=== PATIENT | male | born 1960 | race Two or more races ===

== ENCOUNTER 2016-09-29 10:00 | Emergency (ER) | payer OTHER ==
[~2016-09-29] VITALS: Ht 167.6 cm; Wt 103.4 kg
[2016-09-29] MEDS ORDERED: HYDROmorphone HCL 2 MG/ML VL IM ONE (11:45)
[2016-09-29] MEDS ORDERED: ONDANSETRON HCL 4 MG/2 ML VIAL IM ONE (11:45)
[2016-09-29 12:55] VITALS: BP 146/63
[2016-09-29] MEDS ORDERED: SODIUM CHLORIDE 0.9% 1,000 ML IV ONE (13:15)
[2016-09-29] MEDS ORDERED: MORPHINE SULFATE 4 MG/ML SYRG IV ONE (13:15)
[2016-09-29] MEDS ORDERED: ONDANSETRON HCL 4 MG/2 ML VIAL IV ONE (13:15)
== END 2016-09-29 16:24 | disposition home or self-care (01) ==
LOC: ER 10:11
DX: S22.009A Unspecified fracture of unspecified thoracic vertebra, initial encounter for closed fracture (principal); W22.8XXA Striking against or struck by other objects, initial encounter; Y93.89 Activity, other specified; Y99.0 Civilian activity done for income or pay; Y92.69 Other specified industrial and construction area as the place of occurrence of the external cause
CPT/HCPCS: 70450; 72040; 72070; 72125; 72128; 72131; 73030; 96361; 96374; 96375; 96376; 99285; J1170; J2270; J2405; J7030